=== PATIENT | female | born 1985 | race African-American/Black ===

== ENCOUNTER 2017-06-01 22:12 | Inpatient (IN) | payer BC ==
[2017-06-01] MEDS ORDERED: Butorphanol 1 MG/ML SDV IVPUSH PRN (22:34)
[2017-06-01] MEDS ORDERED: Nalbuphine 10 MG/1 ML Vial IVPUSH PRN (22:34)
[2017-06-01] MEDS ORDERED: Sodium Chloride 0.9% 2.5 ML Syringe FLUSH PRN (22:34)
[2017-06-01] MEDS ORDERED: Lidocaine 1% 50 ML MDV INJECT PRN (22:34)
[2017-06-01] MEDS ORDERED: Terbutaline 1 MG/ML SDV SUBCUT PRN (22:34)
[2017-06-01] MEDS ORDERED: Water For Irrigation,Sterile 1,000 ML Container IRR PRN (22:34)
[2017-06-01] MEDS ORDERED: Misoprostol 200 MCG Tab PO PRN (22:34)
[2017-06-01] MEDS ORDERED: Carboprost Tromethamine 250 MCG/1 ML Amp IM PRN (22:34)
[2017-06-01] MEDS ORDERED: Misoprostol 25 MCG (1/4 of 100 MCG) Tab VAG PRN (22:34)
[2017-06-01] MEDS ORDERED: Sodium Chloride 0.9% 10 ML Syringe FLUSH PRN (22:34)
[2017-06-01] MEDS ORDERED: Methylergonovine 0.2 MG/1 ML Amp IM PRN (22:34)
[2017-06-01] MEDS ORDERED: Misoprostol 25 MCG (1/4 of 100 MCG) Tab VAG SCH (22:45)
[2017-06-01] MEDS ORDERED: Oxytocin/0.9 % Sodium Chloride 30 UNIT/500 ML BAG IV SCH ×2 (22:45)
[2017-06-01] MEDS: Lactated Ringers 1,000 ML IV SCH (22:57)
[2017-06-02] MEDS: Lactated Ringers 1,000 ML IV SCH (03:36)
[2017-06-02] MEDS ORDERED: Benzocaine/Menthol 20%-0.5% Spray 78 GM Cannister TOP PRN (04:23)
[2017-06-02] MEDS ORDERED: oxyCODONE 5 MG Tab PO PRN (04:23)
[2017-06-02] MEDS ORDERED: Lanolin 100% Cream 7 GM Tube TOP PRN (04:23)
[2017-06-02] MEDS ORDERED: Acetaminophen 500 MG Tab PO PRN (04:23)
[2017-06-02] MEDS ORDERED: Docusate Sodium 100 MG Cap PO PRN (04:23)
[2017-06-02] MEDS ORDERED: Witch Hazel Medicated Pads 40/Jar TOP PRN (04:23)
[2017-06-02] MEDS ORDERED: Bisacodyl 10 MG Supp RECTAL PRN (04:23)
--- NOTE | 2017-06-02 07:14 | OR ---
SURGEON: Catherine Adam M.D. DATE OF PROCEDURE: 06/02/2017 PREOPERATIVE DIAGNOSIS: A 39-5/7th week intrauterine , gestational hypertension. POSTOPERATIVE DIAGNOSIS: A 39-5/7th week intrauterine , gestational hypertension. PROCEDURE: Cytotec induction, term spontaneous vaginal delivery. ANESTHESIA: Pudendal. ESTIMATED BLOOD LOSS: Less than 200 mL. FINDINGS: Live born female, score 8 and 9, weight is 3750 g. Placenta was delivered spontaneously, Schultze intact with 3 vessels. Perineum intact. COMPLICATIONS: None known. DISPOSITION: Mother and baby are in LDRP in good condition. BRIEF HISTORY: This is a 32-year-old female. She is G2, P1-0-0-1. She presents for induction of labor at 39 and 5/7th weeks' gestation due to elevated systolic blood pressures in the clinic with negative preeclamptic evaluation. She received a single dose of Cytotec. She progressed into labor. When she was 4-5 cm dilated, she had spontaneous rupture of membranes. Clear fluid noted. She is group B strep negative and she rapidly thereafter, within 1 hour, progressed to complete. DESCRIPTION OF PROCEDURE: With the patient in dorsal lithotomy position, a pudendal block was performed by placing 10 mL of 1% lidocaine, 2 cm medial, and inferior to the sacral spinous process on the right and the left. With this, she had loss of sphincter reflex and good pain control. She pushed over a 15-minute time period to a 5+ station, at which time the head was delivered spontaneously and atraumatically over the perineum with support with subsequent delivery of the 's shoulders and body without any difficulty. The infant was bulb suctioned by nose and mouth, and the infant was handed to the mother in the presence of the nurse attending delivery. The was a liveborn female, score 8 and 9. Weight of 3750 g. After cord had ceased to pulse late, it was doubly clamped and cut. Pitocin was initiated after delivery of the to assist with delivery of the placenta, which was delivered spontaneously, Schultze intact with 3 vessels. Upon inspection of the pelvis and perineum, there were no periurethral, vaginal sidewall, cervical, rectal, or perineal lacerations. EBL was less than 200 mL. At approximately 12 minutes of life, I did observe the baby, who appeared somewhat dusky and asked for O2 saturations, which were obtained and recovered to the 80s to 90s with blow-by oxygen and Dr. Jolly was notified of the need for oxygen for the baby as he is the mobility scooter repairer on-call. Complications were none known, and mother and baby remained in LDRP in good condition, baby requiring blow-by oxygen. PRIMARY SURGEON: SECONDARY SURGEON: BRANCH BANKER: REASON BRANCH BANKER WAS NECESSARY: ROLE OF BRANCH BANKER: SAM VU /[id number]
[2017-06-02] MEDS: Ibuprofen 800 MG Tab PO PRN (13:59)
[2017-06-03] MEDS: Ibuprofen 800 MG Tab PO PRN (00:22)
--- NOTE | 2017-06-03 08:30 | PCM.PNPP ---
- General Info Date of Service: 06/03/17 Admission Dx/Problem (Free Text): 32 yo P2 s/p PPD1 Gestational hypertension Subjective Update: Patient seen at bedside , denies any complains Functional Status: Reports: Pain Controlled, Tolerating Diet, Ambulating, Urinating - Review of Systems General: Reports: No Symptoms HEENT: Reports: No Symptoms Pulmonary: Reports: No Symptoms Cardiovascular: Reports: No Symptoms Gastrointestinal: Reports: No Symptoms Genitourinary: Reports: No Symptoms Musculoskeletal: Reports: No Symptoms Skin: Reports: No Symptoms Neurological: Reports: No Symptoms Psychiatric: Reports: No Symptoms - General Info Date of Service: 06/03/17 - Patient Data Vital Signs - Most Recent: Last Vital Signs Temp 36.4 C 06/03/17 04:45 Pulse 62 06/03/17 04:45 Resp 15 06/03/17 04:45 BP 113/65 06/03/17 04:45 Pulse Ox 98 06/03/17 04:45 Weight - Most Recent: 127.459 kg Lab Results - Last 24 Hours: Laboratory Results - last 24 hr 06/03/17 Range/Units 05:08 Hgb 11.8 L (12.0-16.0) g/dL Hct 35.7 L (36.0-46.0) % Med Orders - Current: Current Medications Acetaminophen (Tylenol Extra Strength) 1,000 mg PO Q4H PRN PRN Reason: Pain Last Admin: 06/02/17 18:10 Dose: 1,000 mg Benzocaine/Menthol (Dermoplast Pain Relief 20%-0.5% [place]) 78 gm TOP ASDIRECTED PRN PRN Reason: Perineal Comfort Measure Bisacodyl (Dulcolax) 10 mg RECTAL .ONCE PRN PRN Reason: Constipation Docusate Sodium (Colace) 100 mg PO BID PRN PRN Reason: Constipation Emollient Ointment (Lansinoh Hpa) 0 gm TOP ASDIRECTED PRN PRN Reason: Sore Nipples Ibuprofen (Motrin) 800 mg PO Q6H PRN PRN Reason: Pain Last Admin: 06/03/17 00:22 Dose: 800 mg Oxycodone HCl (Oxycodone) 5 mg PO Q2H PRN PRN Reason: Pain Witch Mariella (Tucks) 1 pad TOP ASDIRECTED PRN PRN Reason: comfort care Discontinued Medications Butorphanol Tartrate (Stadol) 1 mg IVPUSH ASDIRECTED PRN PRN Reason: Pain Last Admin: 06/02/17 03:15 Dose: 1 mg Carboprost Tromethamine (Hemabate Ds) 250 mcg IM ASDIRECTED PRN PRN Reason: Post Hemorrhage Lactated Ringer's (Ringers, Lactated) 1,000 mls @ 150 mls/hr IV ASDIRECTED BETY Last Admin: 06/02/17 03:36 Dose: 999 mls/hr Oxytocin/Sodium Chloride (Oxytocin 30 Unit/500 Ml-Ns) 30 unit in 500 mls @ 999 mls/hr IV ASDIRECTED BETY Last Admin: 06/02/17 03:56 Dose: 999 mls/hr Oxytocin/Sodium Chloride (Oxytocin 30 Unit/500 Ml-Ns) 30 unit in 500 mls @ 2 mls/hr IV TITRATE BETY; 2 MUNITS/MIN PRN Reason: Protocol Lidocaine HCl (Xylocaine 1%) 50 ml INJECT .ONCE PRN PRN Reason: Laceration repair Last Admin: 06/02/17 04:42 Dose: 50 ml Methylergonovine Maleate (Methergine) 0.2 mg IM ASDIRECTED PRN PRN Reason: Post Hemorrhage Misoprostol (Cytotec) 200 mcg PO .ONCE PRN PRN Reason: Post Hemorrhage Misoprostol (Cytotec) 25 mcg VAG .ONCE BETY Last Admin: 06/01/17 23:31 Dose: 25 mcg Misoprostol (Cytotec) 25 mcg VAG Q4H PRN PRN Reason: Cervical Ripening Nalbuphine HCl (Nubain) 10 mg IVPUSH ASDIRECTED PRN PRN Reason: Pain (severe 7-10) Sodium Chloride (Saline Flush) 10 ml FLUSH ASDIRECTED PRN PRN Reason: Keep Vein Open Sodium Chloride (Saline Flush) 2.5 ml FLUSH ASDIRECTED PRN PRN Reason: Keep Vein Open Sterile Water (Sterile Water For Irrigation) 1,000 ml IRR ASDIRECTED PRN PRN Reason: delivery Last Admin: 06/02/17 04:42 Dose: 1,000 ml Terbutaline Sulfate (Brethine) 0.25 mg SUBCUT ASDIRECTED PRN PRN Reason: Tacysystole - Infant Interaction Infant Disposition, : [place] in Room with Family Support Person: - Recovery Exam Fundal Tone: Firm Fundal Level: At Umbilicus Fundal Placement: Midline Lochia Amount: Scant Lochia Color: Rubra/Red Perineum Description: Intact, Minimal Bruising/Swelling Episiotomy/Laceration: None Bladder Status: Voiding Urinary Elimination: Voided - Exam General: Alert, Oriented HEENT: Pupils Equal Lungs: Clear to Auscultation Cardiovascular: Regular Rate, Regular Rhythm GI/Abdominal Exam: Normal Bowel Sounds Psy/Mental Status: Alert - Problem List & Annotations (1) Vaginal delivery SNOMED Code(s): 096017362 Code(s): O80 - ENCOUNTER FOR FULL-TERM UNCOMPLICATED DELIVERY Status: Acute Current Visit: Yes - Problem List Review Problem List Initiated/Reviewed/Updated: Yes - Assessment Assessment:: 32 yo P2 s/p PPD1 , stable , minimal lochia - Plan Plan:: Pain control as needed Discharge home today Call [facility] if fever > 101 Heavy vaginal bleeding PNV and Iron
== END 2017-06-03 15:10 | disposition home or self-care (01) | DRG 560 ==
LOC: MW.OBCHECK 22:12 → MW.OB 22:14 → MW.OBCHECK 22:34 → MW.OB 22:34 → OBSVTOIN 06-02 03:55
PROVIDERS: ADMIT Obstetrics & Gynecology; ATTEND Obstetrics & Gynecology
PROC: 10E0XZZ Delivery of Products of Conception, External Approach (ICD-10-PCS; principal; 2017-06-02)
PROC: 3E0P7VZ Introduction of Hormone into Female Reproductive, Via Natural or Artificial Opening (ICD-10-PCS; 2017-06-02)
DX: O13.4 Gestational [pregnancy-induced] hypertension without significant proteinuria, complicating childbirth (principal); Z3A.39 39 weeks gestation of pregnancy; Z37.0 Single live birth
CPT/HCPCS: 36415; 59025; 59409; 85014; 85018; 85027; 86850; 86900; 86901; A9270-GY; J0595; J2590; J7120

== ENCOUNTER 2019-11-27 03:13 | Inpatient (IN) | payer BC ==
[2019-11-27] MEDS ORDERED: Lidocaine 1% 50 ML MDV INJECT PRN (04:06)
[2019-11-27] MEDS ORDERED: Methylergonovine 0.2 MG/1 ML Amp IM PRN (04:06)
[2019-11-27] MEDS ORDERED: Sodium Chloride 0.9% 10 ML Syringe FLUSH PRN (04:06)
[2019-11-27] MEDS ORDERED: Carboprost Tromethamine 250 MCG/1 ML Amp IM PRN (04:06)
[2019-11-27] MEDS ORDERED: Sodium Chloride 0.9% 10 ML SDV IV PRN (04:06)
[2019-11-27] MEDS ORDERED: Butorphanol 1 MG/ML SDV IVPUSH PRN (04:06)
[2019-11-27] MEDS ORDERED: Sodium Chloride 0.9% 2.5 ML Syringe FLUSH PRN (04:06)
[2019-11-27] MEDS ORDERED: Ondansetron 4 MG/2 ML SDV IVPUSH PRN (04:06)
[2019-11-27] MEDS ORDERED: Water For Irrigation,Sterile 1,000 ML Container IRR PRN (04:06)
[2019-11-27] MEDS ORDERED: Tranexamic Acid 1,000 MG in Sodium Chloride 0.9% 100 ML IV PRN (04:06)
[2019-11-27] MEDS ORDERED: Nalbuphine 10 MG/1 ML Vial IVPUSH PRN (04:06)
[2019-11-27] MEDS ORDERED: Misoprostol 200 MCG Tab PO PRN (04:06)
[2019-11-27] MEDS ORDERED: Oxytocin/0.9 % Sodium Chloride 30 UNIT/500 ML BAG IV SCH (04:15)
[2019-11-27] MEDS: Lactated Ringers 1,000 ML IV SCH ×2 (04:34→06:01)
[2019-11-27] MEDS ORDERED: Lidocaine 1% 50 ML MDV ONE (07:25)
[2019-11-27] MEDS ORDERED: Ibuprofen 400 MG Tab PO PRN (10:10)
[2019-11-27] MEDS ORDERED: Acetaminophen 500 MG Tab PO PRN ×2 (10:10)
[2019-11-27] MEDS ORDERED: Lanolin 100% Cream 7 GM Tube TOP PRN (10:10)
[2019-11-27] MEDS ORDERED: Aluminum Hydroxide/Magnesium Hydroxide/Simethicone Susp 30 ML Cup PO PRN (10:10)
[2019-11-27] MEDS ORDERED: Benzocaine/Menthol 20%-0.5% Spray 78 GM Cannister TOP PRN (10:10)
[2019-11-27] MEDS ORDERED: Witch Hazel Medicated Pads 40/Jar TOP PRN (10:10)
[2019-11-27] MEDS ORDERED: oxyCODONE 5 MG Tab PO PRN (10:10)
[2019-11-27] MEDS ORDERED: Bisacodyl 10 MG Supp RECTAL PRN (10:10)
[2019-11-27] MEDS: Ibuprofen 800 MG Tab PO PRN ×2 (10:17→20:09)
--- NOTE | 2019-11-27 10:17 | PCM.OPNOTE ---
- General Post-Op/Procedure Note Date of Surgery/Procedure: 11/27/19 Operative Procedure(s): /1st MLL repaired Findings: Viable male APGARs 9, 9 weigh 4020 gm. Spontaneous delivery intact placenta with 3V cord Pre Op Diagnosis: 39/2 week IUP. Labor Post-Op Diagnosis: Same Anesthesia Technique: Local, Other (see below) (pudendal) Primary Surgeon: Dominique Kumar EBL in mLs: 300 Complications: none known Condition: Stable Free Text/Narrative:: Dictation [id number]
--- NOTE | 2019-11-27 15:21 | OR ---
SURGEON: Dominique Kumar M.D. DATE OF PROCEDURE: 11/27/2019 PREOPERATIVE DIAGNOSES: 1. 39 and 2-week intrauterine . 2. Active labor. POSTOPERATIVE DIAGNOSES: 1. 39 and 2-week intrauterine . 2. Active labor. PROCEDURES: Spontaneous vaginal delivery, first-degree midline laceration repaired. ANESTHESIA: Pudendal with local. ESTIMATED BLOOD LOSS: 300 mL. COMPLICATIONS: None known. FINDINGS: Viable male. score of 9 at 1 minute, 9 at 5 minutes. Weight of 4020 g. Spontaneous delivery, intact placenta, 3-vessel cord. DISPOSITION: Infant to nursery, mom in LDRP. 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 She was initially found to be 4 to 5 cm, was admitted. Routine labs were drawn, IV hydration was initiated. She continued to labor through the morning hours, was category 1 heart tones. Shortly after 8 a.m., she had spontaneous rupture of membranes, clear fluid was found to be present, she was 9.5 cm and progressed to complete with the urge to push. She began pushing efforts, pushed readily, and was able to deliver the head to +2 station. She is requesting regional anesthesia in the form of epidural. Therefore, the ischial spines were palpated on the side directly below this and along the pudendal notch. I was able to allocate 5 mL of 1% lidocaine to each side. The patient continued with pushing efforts, and once at a +3 station, was able to instill approximately 3 mL of 1% lidocaine along the midline perineum. The patient was able to deliver infant's head atraumatically spontaneously, followed by anterior shoulder, posterior shoulder, remainder of body. The infant's oropharynx and nares were bulb suctioned. The was handed off to his mother with attending nursing staff at the side. After a delay, cord was clamped x2 and cut. Cord arterial, cord venous, cord blood sampling was obtained. Light pressure was applied. The placenta was delivered spontaneously intact. Vigorous fundal uterine massage was then applied while 30 units Pitocin was delivered in 500 mL of fluid. Upon inspection of cervix, vaginal sidewall, perineum, while they are edematous, there is a first-degree midline laceration noted. This was repaired using 3-0 Vicryl in the usual fashion. Hemostasis appeared evident. Uterus remained firm. Sponge, instrument, and needle counts were correct. The patient remained in LDRP, infant to nursery. RUDOLPH / MIRELLA /[id number]
[2019-11-27] MEDS: Docusate Sodium 100 MG Cap PO PRN (20:10)
[2019-11-28] MEDS: Ibuprofen 800 MG Tab PO PRN (11:59)
--- NOTE | 2019-11-28 12:09 | PCM.PNPP ---
- General Info Date of Service: 11/28/19 Functional Status: Reports: Pain Controlled, Tolerating Diet, Ambulating, Urinating - Review of Systems General: Reports: No Symptoms HEENT: Reports: No Symptoms Pulmonary: Reports: No Symptoms Cardiovascular: Reports: No Symptoms Gastrointestinal: Reports: No Symptoms Genitourinary: Reports: No Symptoms Musculoskeletal: Reports: No Symptoms Skin: Reports: No Symptoms Neurological: Reports: No Symptoms Psychiatric: Reports: No Symptoms - General Info Date of Service: 11/28/19 - Patient Data Vital Signs - Most Recent: Last Vital Signs Temp 36.6 C 11/28/19 09:00 Pulse 83 11/28/19 04:31 Resp 18 11/28/19 09:00 BP 111/61 11/28/19 09:00 Pulse Ox 96 11/28/19 09:00 Weight - Most Recent: 104.496 kg Lab Results - Last 24 Hours: Laboratory Results - last 24 hr 11/28/19 Range/Units 05:25 Hgb 9.6 L (12.0-16.0) g/dL Hct 30.2 L (36.0-46.0) % Med Orders - Current: Current Medications Acetaminophen (Tylenol Extra Strength) 500 mg PO Q4H PRN PRN Reason: Pain Acetaminophen (Tylenol Extra Strength) 1,000 mg PO Q4H PRN PRN Reason: Pain Al Hydroxide/Mg Hydroxide (Mag-Al Plus) 30 ml PO Q8H PRN PRN Reason: Heartburn Last Admin: 11/27/19 20:09 Dose: 30 ml Benzocaine/Menthol (Dermoplast Pain Relief 20%-0.5% [place]) 78 gm TOP ASDIRECTED PRN PRN Reason: Perineal Comfort Measure Last Admin: 11/27/19 10:20 Dose: 1 cartridge Bisacodyl (Dulcolax) 10 mg RECTAL ONETIME PRN PRN Reason: Constipation Carboprost Tromethamine (Hemabate Ds) 250 mcg IM ASDIRECTED PRN PRN Reason: Post Hemorrhage Docusate Sodium (Colace) 100 mg PO BID PRN PRN Reason: Constipation Last Admin: 11/27/19 20:10 Dose: 100 mg Emollient Ointment (Lansinoh Hpa) 0 gm TOP ASDIRECTED PRN PRN Reason: Sore Nipples Last Admin: 11/27/19 20:10 Dose: 1 tube Tranexamic Acid 1,000 mg/ (Sodium Chloride) 110 mls @ 660 mls/hr IV ONETIME PRN PRN Reason: Bleeding Lactated Ringer's (Ringers, Lactated) 1,000 mls @ 150 mls/hr IV ASDIRECTED BETY Last Admin: 11/27/19 06:01 Dose: 150 mls/hr Oxytocin/Sodium Chloride (Oxytocin 30 Unit/500 Ml-Ns) 30 unit in 500 mls @ 999 mls/hr IV TITRATE [facility] Last Admin: 11/27/19 09:55 Dose: 999 mls/hr Ibuprofen (Motrin) 400 mg PO Q4H PRN PRN Reason: Pain Ibuprofen (Motrin) 800 mg PO Q6H PRN PRN Reason: Pain Last Admin: 11/28/19 11:59 Dose: 800 mg Lidocaine HCl (Xylocaine 1%) 50 ml INJECT ONETIME PRN PRN Reason: Laceration repair Methylergonovine Maleate (Methergine) 0.2 mg IM ASDIRECTED PRN PRN Reason: Post Hemorrhage Misoprostol (Cytotec) 200 mcg PO ONETIME PRN PRN Reason: Post Hemorrhage Nalbuphine HCl (Nubain) 10 mg IVPUSH Q1H PRN PRN Reason: Pain (severe 7-10) Ondansetron HCl (Zofran) 4 mg IVPUSH Q6H PRN PRN Reason: Nausea/Vomiting Oxycodone HCl (Oxycodone) 5 mg PO Q2H PRN PRN Reason: Pain Last Admin: 11/27/19 10:18 Dose: 5 mg Sodium Chloride (Saline Flush) 10 ml FLUSH ASDIRECTED PRN PRN Reason: Keep Vein Open Sodium Chloride (Saline Flush) 2.5 ml FLUSH ASDIRECTED PRN PRN Reason: Keep Vein Open Sodium Chloride (Normal Saline) 10 ml IV ASDIRECTED PRN PRN Reason: IV Use Sterile Water (Sterile Water For Irrigation) 1,000 ml IRR ASDIRECTED PRN PRN Reason: delivery Last Admin: 11/27/19 09:52 Dose: 1,000 ml Witch Mariella (Tucks) 1 pad TOP ASDIRECTED PRN PRN Reason: comfort care Last Admin: 11/27/19 10:19 Dose: 1 tub Discontinued Medications Butorphanol Tartrate (Stadol) 1 mg IVPUSH Q1H PRN PRN Reason: Pain Last Admin: 11/27/19 05:00 Dose: 1 mg Lidocaine HCl (Xylocaine 1%) Confirm Administered Dose 50 ml .ROUTE .STK-MED ONE Stop: 11/27/19 07:26 - Infant Interaction Support Person: - Recovery Exam Fundal Tone: Firm Fundal Level: At Umbilicus Fundal Placement: Midline Lochia Amount: Small Lochia Color: Rubra/Red Perineum Description: Intact, Minimal Bruising/Swelling Episiotomy/Laceration: Approximated Bladder Status: Voiding Urinary Elimination: Voided - Exam General: Alert HEENT: Pupils Equal, Pupils Reactive Neck: Supple Lungs: Clear to Auscultation Cardiovascular: Regular Rate, Regular Rhythm GI/Abdominal Exam: Normal Bowel Sounds Extremities: Normal Inspection Neurological: No New Focal Deficit Psy/Mental Status: Alert - Problem List & Annotations (1) Vaginal delivery SNOMED Code(s): 117041520 Code(s): O80 - ENCOUNTER FOR FULL-TERM UNCOMPLICATED DELIVERY Status: Acute Current Visit: No - Problem List Review Problem List Initiated/Reviewed/Updated: Yes - Assessment Assessment:: 34yo P3 PPD1, Normal lochia - Plan Plan:: Discharge home today Pain control
[2019-11-28] MEDS: Docusate Sodium 100 MG Cap PO PRN (13:47)
== END 2019-11-28 15:00 | disposition home or self-care (01) | DRG 560 ==
LOC: MW.OBCHECK 03:13 → MW.OB 03:14 → MW.OBCHECK 04:06 → MW.OB 04:06 → OBSVTOIN 10:10 → MW.OB 14:56
PROVIDERS: ADMIT Obstetrics & Gynecology; ATTEND Obstetrics & Gynecology
PROC: 10E0XZZ Delivery of Products of Conception, External Approach (ICD-10-PCS; principal; 2019-11-27)
PROC: 0HQ9XZZ Repair Perineum Skin, External Approach (ICD-10-PCS; 2019-11-27)
DX: O70.0 First degree perineal laceration during delivery (principal); Z3A.39 39 weeks gestation of pregnancy; Z37.0 Single live birth
CPT/HCPCS: 36415; 59025; 59409; 82803; 85014; 85018; 85027; 86592; 86850; 86900; 86901; A9270-GY; J0595; J2001; J2590; J7120

== ENCOUNTER 2022-08-22 01:31 | Inpatient (IN) | payer BC ==
[2022-08-22] MEDS ORDERED: Misoprostol 200 MCG Tab PO PRN (02:48)
[2022-08-22] MEDS ORDERED: Water For Irrigation,Sterile 1,000 ML Container IRR PRN (02:48)
[2022-08-22] MEDS ORDERED: Sodium Chloride 0.9% 20 ML SDV IV PRN (02:48)
[2022-08-22] MEDS ORDERED: Carboprost Tromethamine 250 MCG/1 ML Amp IM PRN (02:48)
[2022-08-22] MEDS ORDERED: Methylergonovine 0.2 MG/1 ML Amp IM PRN (02:48)
[2022-08-22] MEDS ORDERED: Terbutaline 1 MG/ML SDV SUBCUT PRN (02:48)
[2022-08-22] MEDS ORDERED: Sodium Chloride 0.9% 2.5 ML Syringe FLUSH PRN (02:48)
[2022-08-22] MEDS ORDERED: Tranexamic Acid 1,000 MG in Sodium Chloride 0.9% 100 ML IV PRN (02:48)
[2022-08-22] MEDS ORDERED: Butorphanol 1 MG/ML SDV IVPUSH PRN (02:48)
[2022-08-22] MEDS ORDERED: Sodium Chloride 0.9% 10 ML Syringe FLUSH PRN (02:48)
[2022-08-22] MEDS ORDERED: Ondansetron 4 MG/2 ML SDV IVPUSH PRN (02:48)
[2022-08-22] MEDS ORDERED: Lidocaine 1% 50 ML MDV INJECT PRN (02:48)
[2022-08-22] MEDS ORDERED: Oxytocin/0.9 % Sodium Chloride 30 UNIT/500 ML BAG IV SCH ×2 (03:00)
[2022-08-22] MEDS: Lactated Ringers 1,000 ML IV SCH ×2 (09:56→13:10)
[2022-08-22] MEDS ORDERED: Phenylephrine HCl In 0.9% NaCl 1 MG/10 ML Vial IVPUSH PRN (10:32)
[2022-08-22] MEDS ORDERED: ePHEDrine 50 MG/ML SDV IVPUSH PRN ×2 (10:32)
[2022-08-22] MEDS ORDERED: Ropivacaine HCl/PF 400 MG in Premix Bag 1 BAG EPIDUR SCH (10:45)
[2022-08-22] MEDS ORDERED: Phenylephrine HCl In 0.9% NaCl 1 MG/10 ML Vial IVPUSH SCH (10:45)
[2022-08-22] MEDS ORDERED: Lanolin 100% Cream 7 GM Tube TOP PRN (16:33)
[2022-08-22] MEDS ORDERED: Famotidine 20 MG Tab PO PRN (16:33)
[2022-08-22] MEDS ORDERED: Docusate Sodium 100 MG Cap PO PRN (16:33)
[2022-08-22] MEDS ORDERED: oxyCODONE 5 MG Tab PO PRN (16:33)
[2022-08-22] MEDS ORDERED: Benzocaine/Menthol 20%-0.5% Spray 78 GM Cannister TOP PRN (16:33)
[2022-08-22] MEDS ORDERED: Simethicone 80 MG Tab.Chew PO PRN (16:33)
[2022-08-22] MEDS ORDERED: Acetaminophen 500 MG Tab PO PRN ×2 (16:33)
[2022-08-22] MEDS ORDERED: Ibuprofen 400 MG Tab PO PRN (16:33)
[2022-08-22] MEDS ORDERED: Witch Hazel Medicated Pads 40/Jar TOP PRN (16:33)
[2022-08-22] MEDS ORDERED: Acetaminophen/Codeine 300-30 MG Tab PO PRN (16:33)
[2022-08-22] MEDS ORDERED: Measles, Mumps & Rubella Vaccine 0.5 ML SDV SUBCUT ONE (16:33)
[2022-08-22] MEDS ORDERED: Aluminum Hydroxide/Magnesium Hydroxide/Simethicone XS Susp 30 ML Cup PO PRN (16:33)
[2022-08-22] MEDS ORDERED: Bisacodyl 10 MG Supp RECTAL PRN (16:33)
[2022-08-22] MEDS: Ibuprofen 800 MG Tab PO PRN (18:11)
[2022-08-23] MEDS: Ibuprofen 800 MG Tab PO PRN (12:51)
== END 2022-08-23 21:32 | disposition home or self-care (01) | DRG 560 ==
LOC: MW.OBCHECK 01:31 → MW.OB 01:32 → MW.OBCHECK 02:48 → MW.OB 02:48 → OBSVTOIN 16:08 → MW.OB 19:19
PROVIDERS: ADMIT Obstetrics & Gynecology; ATTEND Obstetrics & Gynecology
PROC: 10E0XZZ Delivery of Products of Conception, External Approach (ICD-10-PCS; principal; 2022-08-22)
PROC: 10907ZC Drainage of Amniotic Fluid, Therapeutic from Products of Conception, Via Natural or Artificial Opening (ICD-10-PCS; 2022-08-22)
PROC: 3E033VJ Introduction of Other Hormone into Peripheral Vein, Percutaneous Approach (ICD-10-PCS; 2022-08-22)
PROC: 3E0R3BZ Introduction of Anesthetic Agent into Spinal Canal, Percutaneous Approach (ICD-10-PCS; 2022-08-22)
PROC: 00HU33Z Insertion of Infusion Device into Spinal Canal, Percutaneous Approach (ICD-10-PCS; 2022-08-22)
DX: O80 Encounter for full-term uncomplicated delivery (principal); Z37.0 Single live birth; Z3A.39 39 weeks gestation of pregnancy; Z87.59 Personal history of other complications of pregnancy, childbirth and the puerperium
CPT/HCPCS: 36415; 51702; 59025; 59409; 85027; 86592; 86850; 86900; 86901; A9270-GY; J2405; J2590; J7120; U0002